=== PATIENT | male | born 1950 | race Caucasian/White ===

== ENCOUNTER → 2018-12-21 | Day surgery (SDC) | payer BC ==
[~2018-12-21] MED LIST: CEFTRIAXONE SOD 1 GM/NS 50 ML 50 ML IV ONE; DEXAMETHASONE SOD PHOS INJ 4 MG/ML VIAL ONE; FENTANYL CITRATE/PF 100MCG/2 ML INJ ONE; GENTAMICIN 120MG/NS 100ML 100 ML ONE; LIDOCAINE HCL 2% LOCAL INJ 5 ML SDV VIAL INJ ONE; MIDAZOLAM HCL 2 MG/2 ML VIAL ONE; ONDANSETRON HCL INJ 2MG/ML 2ML 2 MG/ML VIAL ONE; PROPOFOL IV EMULSION 10 MG/ML 20 ML VIAL ONE; SEVOFLURANE INHAL SOLN 250 ML PEN BTL ONE
--- OUTSIDE RECORDS SUMMARY | 2018-12-21 08:38 | XMS REPORT | Clinical Summary ---
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 Name Role Phone Asked, No Pcp PCP Unavailable Allergies Not on File Medications Not on file Active Problems Not on file Encounters Care Team Description Date Type Specialty Adonis Mcmillan MD Enlarged prostate with urinary obstruction 10/25/2018 Hospital Radiology Encounter Adonis Mcmillan MD Enlarged prostate with urinary obstruction (Primary Dx) 10/17/2018 Transcribe Access Orders after 12/20/2017 Social History Date Tobacco Use Types Packs/Day Years Used Never Assessed Sex Assigned at Date Recorded Not on file Industry Job Start Date Occupation Not on file Not on file Not on file Travel End Travel History Travel Start No recent travel history available. 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 Multiple transrectal sonographic images of the prostate gland are obtained using real-time ultrasonography. FINDINGS: The prostate gland measures 7.2 x 4.1 x 5.5 cm. The prostate volume is 84.9 cc. Prostate gland is heterogeneous. There are small cystic spaces seen within the prostate gland. The seminal vesicles are unremarkable. IMPRESSION: 1. The prostate gland is enlarged. 2. The prostate gland is heterogeneous. 3. There are no masses identified. Procedure Note Hm Interface, Radiology Results Incoming - 10/26/2018 8:27 AM BODYBUILDER EXAMINATION: US PROSTATE CLINICAL HISTORY: N40.1 Benign prostatic hyperplasia with lower urinary tract symptoms, N13.8 Other obstructive and reflux uropathy, n40.1 COMPARISON: None. Multiple transrectal sonographic images of the prostate gland are obtained using real-time ultrasonography. FINDINGS: The prostate gland measures 7.2 x 4.1 x 5.5 cm. The prostate volume is 84.9 cc. Prostate gland is heterogeneous. There are small cystic spaces seen within the prostate gland. The seminal vesicles are unremarkable. IMPRESSION: 1. The prostate gland is enlarged. 2. The prostate gland is heterogeneous. 3. There are no masses identified. Performing Organization Address City/State/Zipcode Phone Number [facility] [address] [place] [address] after 12/20/2017 Insurance Payer Benefit Subscriber ID Type Phone Address Plan / Group BCBS BCBS xxxxxxxxxxxx PPO CHOICE PPO/Z[employer]ERT[employer] PPO Advance Directives Patient has advance care planning documents on file. For more information, anais santoro contact: Blade Ulloa [address] [place] [address]
--- NOTE | 2018-12-21 10:19 | Diagnostic Imaging Report ---
EXAMINATION: PA and lateral views of the chest. COMPARISON: None CLINICAL HISTORY: Preoperative study for prostate biopsy DISCUSSION: Lungs are well-inflated. Calcified granuloma left midlung. No consolidation, pleural effusion, or pneumothorax. Tortuous thoracic aorta with atherosclerotic calcification. Normal heart size without pulmonary edema. No acute osseous abnormality. IMPRESSION: No acute cardiopulmonary abnormalities. Signed by: Dr. Jayant Sullivan M.D. on 12/21/2018 10:16 AM
[2018-12-21 12:10] VITALS: BP 129/61
--- NOTE | 2018-12-21 13:05 | Operative Report ---
DATE OF PROCEDURE: 12/21/2018 SURGEON: Adonis Mcmillan MD PREOPERATIVE DIAGNOSES: 1. Benign prostatic hypertrophy, rule out carcinoma of the prostate. 2. Abnormal PSA, 6.2. POSTOPERATIVE DIAGNOSES: 1. Benign prostatic hypertrophy, rule out carcinoma of the prostate. 2. Abnormal PSA, 6.2. OPERATIONS: 1. Transrectal ultrasound of the prostate. 2. Transrectal ultrasound-guided needle biopsies. 3. Cystourethroscopy. HEALTHCARE RECRUITER: MARIE Serna. ANESTHETIC: General. INDICATIONS: Mr. Ritter is a 68-year-old male, who presented with a chief complaint of lower urinary tract obstructive symptoms and elevated PSA. His PSA was 6.2. Rectal exam showed an enlarged prostate gland and firm. DESCRIPTION OF PROCEDURE: This patient was placed on the table in the lithotomy position and was prepped and draped in a sterile manner after satisfactory anesthesia. Transrectal ultrasound of the prostate was performed and the prostate measured 4.98 x 3.05 x 4.78 with a total volume of 37.69. There were multiple areas of calcification and multiple cysts in the prostate. The remainder part of the prostate was heterogeneous. Transrectal ultrasound-guided needle biopsies were obtained from all over the prostate to map it for any multifocal carcinoma. This patient was then prepped and draped in a sterile manner. A #22-Austrian cystoscope was used and cystourethroscopy was performed and it was noted that the urethra was normal. The prostatic urethra was about 4-5 cm, trilobar, and occlusive. Cystoscopy was then performed using both right angle and the Foroblique lens, and it was noted that the bladder mucosa was normal with no evidence of gross tumor, pathology, or any papillary lesions. The bladder wall was mildly to moderately trabeculated. Both ureteral orifices were seen and were within normal position, configuration, and efflux. The bladder was drained. Cystoscope removed and the patient was taken to the recovery room in satisfactory condition. Plan for this patient is to be placed on Levaquin 500 mg once daily for one week. Ultracet tablet one every 6 hours p.r.n. and was given 20. He is to return to the office in one week. Adonis Mcmillan MD MA/ARLENE /[id number]
== END | disposition home or self-care (01) ==
LOC: OR 08:35
PROVIDERS: ATTEND Specialist
DX: N40.1 Benign prostatic hyperplasia with lower urinary tract symptoms (principal); R97.20 Elevated prostate specific antigen [PSA]; N13.8 Other obstructive and reflux uropathy; N42.83 Cyst of prostate; N42.89 Other specified disorders of prostate; N32.89 Other specified disorders of bladder; J44.9 Chronic obstructive pulmonary disease, unspecified; E78.5 Hyperlipidemia, unspecified; I49.1 Atrial premature depolarization; Z91.013 Allergy to seafood; Z87.891 Personal history of nicotine dependence
CPT/HCPCS: 52000; 55700; 71046; 76872; 88305; 93005; J0696; J1100; J1580; J2001; J2250; J2405; J2704; 76998